=== PATIENT | male | born 1980 | race Caucasian/White ===

== ENCOUNTER 2018-08-25 16:12 | Inpatient (IN) | payer MEDICARE, MEDICAID ==
[~2018-08-25] VITALS: Ht 152.4 cm; Wt 34.0 kg
[~2018-08-25 16:12] MED LIST: CLONAZEPAM 0.50.5 M1 PO; DILANTIN100 MG PO; DULCOLAX10 MG RECTAL; GAS RELIEF80 MG PO; LIORESAL 10 MG10 MG PO; OMEPRAZOLE40 MG PO; PEPCID20 MG PO; SENOKOT-S1 TA2 PO; ZYRTEC10 MG PO
[2018-08-25 16:13] VITALS: BP 72/46
[2018-08-25] MEDS ORDERED: CLARITIN10 MG PO (16:23)
[2018-08-25] MEDS ORDERED: PHENYTOIN SODI100 M3 PO (16:23)
[2018-08-25 17:31] LABS: ABSOLUTE LYMPHOCYTES 1.6 thou/uL (0.8-5.3); ABSOLUTE MONOCYTES 0.3 thou/uL (0.0-1.2); ABSOLUTE NEUTROPHILS 3.2 thou/uL (1.6-8.1); BASOPHILS 0.3 %; EOSINOPHILS 0.1 %; HEMATOCRIT 41.8 % (42.0-52.0); HEMOGLOBIN 13.7 gm/dL (14.0-18.0); LYMPHOCYTES 31.4 %; MCH 31.3 pg (26.0-34.0); MCHC 32.7 g/dL (28.0-37.0); MCV 95.7 fL (80.0-100.0); MONOCYTES 6.4 %; MPV 10.2 fl. (7.2-11.1); NUCLEATED RBCS 0 /100WBC; PLATELET COUNT* 100 thou/uL (150-400); POLYS 61.8 %; RBC 4.37 mil/uL (4.50-6.00); RDW-CV 15.1 % (10.5-14.5); WBC 5.1 thou/uL (4.0-11.0)
[2018-08-25 17:53] LABS: ALBUMIN 3.7 g/dL (3.4-5.0); CALCIUM 8.6 mg/dL (8.5-10.1); CREATININE 2.3 mg/dL (0.6-1.3); POTASSIUM 4.8 mmol/L (3.5-5.1); TOTAL BILIRUBIN 0.3 mg/dL (<0.1-1.0); TOTAL PROTEIN 6.6 g/dL (6.4-8.2)
[2018-08-25 18:00] LABS: BE -0.8 mmol/L (-2 to +3); PO2 70.4 mmHg (75.0-100.0)
[2018-08-25 18:01] LABS: pH 7.269 (7.340-7.450)
[2018-08-25 18:02] LABS: PCO2 61.2 mmHg (35.0-45.0)
[2018-08-25 20:07] LABS: URINE BILIRUBIN NEGATIVE (Negative); URINE BLOOD NEGATIVE (Negative); URINE CLARITY CLEAR; URINE COLOR YELLOW; URINE GLUCOSE-RANDOM NEGATIVE (Negative); URINE KETONES NEGATIVE (Negative); URINE LEUKOCYTES-REFLEX NEGATIVE (Negative); URINE NITRITE-REFLEX NEGATIVE (Negative); URINE PROTEIN NEGATIVE (Negative); URINE SPECIFIC GRAVITY 1.025 (1.005-1.030); URINE UROBILINOGEN 0.2 E.U./dl (0.2-1.0)
[2018-08-25 22:00] VITALS: BP 88/60
[2018-08-25 23:09] VITALS: BP 73/44
[2018-08-25 23:13] LABS: CALCIUM 8.2 mg/dL (8.5-10.1); CREATININE 2.1 mg/dL (0.6-1.3); POTASSIUM 4.4 mmol/L (3.5-5.1)
[2018-08-25 23:30] VITALS: BP 69/46
[2018-08-26] VITALS (32 sets, daily range): BP systolic 56–116; BP diastolic 19–85
[2018-08-26 01:34] LABS: BE -1.5 mmol/L (-2 to +3)
[2018-08-26 01:37] LABS: PCO2 60.6 mmHg (35.0-45.0); pH 7.261 (7.340-7.450)
[2018-08-26 01:38] LABS: PO2 157.8 mmHg (75.0-100.0)
[2018-08-26 02:25] LABS: CALCIUM 7.8 mg/dL (8.5-10.1); POTASSIUM 4.4 mmol/L (3.5-5.1)
[2018-08-26 05:01] LABS: CALCIUM 7.4 mg/dL (8.5-10.1); POTASSIUM 4.2 mmol/L (3.5-5.1)
[2018-08-26 08:24] LABS: BE -2.9 mmol/L (-2 to +3); PCO2 21.4 mmHg (35.0-45.0); pH 7.549 (7.340-7.450)
[2018-08-26 08:26] LABS: PO2 185.9 mmHg (75.0-100.0)
[2018-08-26 08:43] LABS: CALCIUM 7.5 mg/dL (8.5-10.1); CREATININE 2.1 mg/dL (0.6-1.3); POTASSIUM 3.7 mmol/L (3.5-5.1)
[2018-08-27 03:00] VITALS: BP 62/38
--- NOTE | 2018-08-27 12:05 | CON ---
[address] [address] CONSULTATION Name: CASIMIRO SUE Room: [address] [place] .R.#: [id number] Admission: 08/25/18 Attend Phys: Zuleika Cordoba MD Discharge: Date of : 80 Report #: [id number] THIS REPORT FOR: //name// CC: Leisa Cordoba REASON FOR CONSULTATION: Respiratory failure. HISTORY OF PRESENT ILLNESS: This is a 38-year-old male patient who was on BiPAP. He has a background history of cerebral palsy. He did not participate in the history. This information was gathered from review of medical records and discussion with the nursing staff. He was brought into the ER and admitted on 08/25/2018 after family reported poor oral intake. Apparently, he was not eating or drinking for one and a half day prior to hospitalization. At baseline, he is nonverbal and the family noticed he will chew up food and spit it out, which is a new behavior for him. Also, they noticed he had some cough and phlegm production. Due to his condition, he was evaluated in the ER. He was found to be in hypercapnic respiratory failure. He actually required BiPAP and he was found to be in acute renal failure with severe hypernatremia. PAST MEDICAL HISTORY: Cerebral palsy, severe contractures, seizure disorder, gastroesophageal reflux disease and wheelchair bound. HOME MEDICATIONS: Phenytoin, loratadine and Dulcolax. ALLERGIES: No known drug allergies per the record. FAMILY HISTORY: None obtainable. SOCIAL HISTORY: Never smoked. He does not drink alcohol. He does not abuse drugs. REVIEW OF SYSTEMS: None obtainable due to the patient's condition. PHYSICAL EXAMINATION: VITAL SIGNS: On examination, he is Levophed at 8 mcg. Blood pressure 100/70, breathing with the BiPAP around 16 times a minute, pulse rate of 52 and his temperature is 36.9. GENERAL: On examination, severely contracted with hyperextended neck, thin, cachectic with contractures on the extremities. HEENT: Pupils reactive to light. Oral cavity not examined. I did not take the BiPAP mask off. CHEST: Diminished air movement bilaterally, with prolonged expiratory wheeze. I did not hear crackles or rhonchi. ABDOMEN: Flat, slightly distended, fullness in the right iliac fossa, nontender during my examination. Positive bowel sounds. EXTREMITIES: Severe contractures bilaterally. No definitive edema, [place] [address] CONSULTATION Name: CASIMIRO SUE Room: [address]#: [id number] Admission: 08/25/18 Attend Phys: Zuleika Cordoba MD Discharge: Date of : 80 Report #: [id number] contracture of the neck. PSYCHIATRIC: Mood and affect could not be evaluated. NEUROLOGIC: Eyes partially open, did not respond to commands. LABORATORY DATA: His white blood count is 5.1, hemoglobin 16.7 and platelets of 100,000. His ABGs, he had multiple sets of ABGs, which showed hypercapnic respiratory failure; however, the last one this morning on BiPAP, 7.54//185 and that was done on room air at BiPAP 15/5. His sodium was 170; when he came in, 174 and this morning 166. Chloride of 126, potassium 3.7 and creatinine of 2.1. IMAGING DATA: He had 2 sets of chest x-rays. No definite infiltrate was noted, although he had severe contracture with scoliosis. IMPRESSION: 1. Acute hypoxic and hypercapnic respiratory failure. 2. Mental status change. 3. Dehydration. 4. Severe hypernatremia. 5. Acute renal failure. 6. Poor oral intake. 7. Cerebral palsy. 8. History of seizure disorders. PLAN: The reason for the patient's hypercapnic respiratory failure is not clear. Chest x-ray does not show acute infiltrate, but with a history of increased sputum production, infectious process could not be ruled out, especially in the setting of hypotension. He is on vasopressors. We will work on weaning the vasopressors down. I will bolus him more with normal saline. Continue IV fluids, awaiting further input from Nephrology. Monitor his urine output and total fluid intake. Continue BiPAP for now. His CO2 has corrected. I did discuss with RN. We can start giving him breaks of BiPAP depending on his mental status. Keep O2 saturation more than 90%. I would continue the antibiotic and bronchodilator therapy. Keep strict n.p.o. until his mental status is better. We will do a repeat chest x-ray and ABG in the morning. Thank you for the consult. Critical care time 32 minutes. <ELECTRONICALLY SIGNED> By: Nicole Walker MD 08/27/18 1205 [id number] Walker MD /nt
[2018-08-27 16:48] VITALS: BP 79/54
[2018-08-27 20:00] VITALS: BP 83/61
[2018-08-28 09:43] VITALS: BP 83/61
[2018-08-28 11:36] VITALS: BP 83/61
== END 2018-08-28 11:37 | disposition hospice, home (50) | DRG 871 ==
LOC: M.ERS 16:12 → M.TBA-ER 19:09 → M.ICU 19:43 → M.TBA-ER 19:43 → M.ICU 21:32 → M.ORTHSURG 08-26 16:56
PROVIDERS: Emergency Medicine; Internal Medicine Critical Care Medicine; Nurse Practitioner Psychiatric/Mental Health; Personal Emergency Response Attendant; ADMIT Internal Medicine
PROC: 5A09357 Assistance with Respiratory Ventilation, Less than 24 Consecutive Hours, Continuous Positive Airway Pressure (ICD-10-PCS; principal; 2018-08-25)
PROC: 02HV33Z Insertion of Infusion Device into Superior Vena Cava, Percutaneous Approach (ICD-10-PCS; principal; 2018-08-25)
PROC: 5A09357 Assistance with Respiratory Ventilation, Less than 24 Consecutive Hours, Continuous Positive Airway Pressure (ICD-10-PCS; 2018-08-26)
DX: A41.9 Sepsis, unspecified organism (principal); J69.0 Pneumonitis due to inhalation of food and vomit; E43 Unspecified severe protein-calorie malnutrition; N17.0 Acute kidney failure with tubular necrosis; J96.22 Acute and chronic respiratory failure with hypercapnia; J96.21 Acute and chronic respiratory failure with hypoxia; E87.2 Acidosis; E87.0 Hyperosmolality and hypernatremia; Z68.1 Body mass index [BMI] 19.9 or less, adult; E86.0 Dehydration; K56.41 Fecal impaction; G80.9 Cerebral palsy, unspecified; G40.909 Epilepsy, unspecified, not intractable, without status epilepticus; K21.9 Gastro-esophageal reflux disease without esophagitis; Z99.3 Dependence on wheelchair; Z74.01 Bed confinement status; Z79.899 Other long term (current) drug therapy